=== PATIENT | female | born 1995 | race Caucasian/White ===

== ENCOUNTER 2021-10-03 09:16 | Inpatient (IN) ==
[2021-10-03] MEDS ORDERED: OXYTOCIN 30 UNITS/500 ML BAG IV PRN ×3 (10:22→20:02)
[2021-10-03 10:56] LABS: Hemoglobin 12.3 g/dL (12.0-16.0); Mean Corpuscular Hemoglobin 32.9 pg (25-34); Mean Corpuscular Hgb Conc 33.2 g/dL (32-36); Mean Corpuscular Volume 98.9 fL (80-100); Mean Platelet Volume 11.4 fL (7.4-10.4); Platelet Count 278 K/uL (130-400); RDW Coefficient of Variation 12.9 % (11.5-14.5); RDW Standard Deviation 46.7 fL (36.4-46.3); Red Blood Count 3.74 M/uL (4.2-5.4); White Blood Count 12.33 K/uL (4.8-10.8)
--- NOTE | 2021-10-03 10:56 | History & Physical Report ---
Date of Service October 03, 2021 Assessment & Plan (1) History of delivery: Plan: 6-year-old -0-2-2 at 40 weeks of gestation presenting today for induction of labor at term, history of prior , history of prior successful , already has contractions and cervix favorable with bulging bag, AROM'ed and obtain clear fluid. Vital signs stable afebrile, COVID-19 positive, with mild symptoms and excellent oxygen saturation in room air. heart rate reassuring, GBS negative, Plan to monitor continuously, low-dose Pitocin if needed She understands risks of and signed an informed consent, All questions were answered. (2) History of : (3) complicated by subutex maintenance, antepartum: Admission and Anticipated Discharge Date Admission Date: October 03, 2021 History of Present Illness Primary Care Provider: NO PCP Patient is a 26-year-old -0-2-2 at 40 weeks of gestation who was admitted for induction of labor for . She was tested positive for COVID 19 on September 26. She now has mild cough and chest discomfort. But denies fever, chills, nausea or vomiting, shortness of breath. She denies contractions, leakage of fluid, vaginal bleeding. She reports good movements. Her has been complicated by, 1. Subutex use during , history of opiate abuse, 2. Tobacco use during , smokes 1 pack cigarettes per day, 3.history of bipolar disorder and depression, not on any medications now, 4. History of prior , history of successful , Patient understands risks of including but not limited to uterine rupture, intra-abdominal bleeding, blood transfusion, hysterectomy and injury. She understands risks of repeat as well. I reviewed the risks and benefits in detail from [employer], form and she read all and sign the informed consent. Discussed limitation of induction agents with . Discussed [place] balloon mechanical dilatation, low-dose Pitocin, artificial rupture of membranes. Her cervix is dilated dilated to 3 cm with bulging bag and I offered her AROM and she accepts. Allergies Allergy/AdvReac Type Severity Reaction Status Date / Time Dust Allergy ? Uncoded 03/11/09 15:14 Home Medications Medication Instructions Recorded Confirmed Type buprenorphine HCl 8 mg sublingual 8 mg SUBLINGUAL Q8 10/03/21 10/03/21 History tablet docusate sodium 100 mg capsule 100 mg PO BID PRN 10/03/21 10/03/21 History (Colace) doxylamine succinate 25 mg tablet 25 mg PO HS PRN 10/03/21 10/03/21 History famotidine 20 mg tablet (Pepcid) 20 mg PO HS 10/03/21 10/03/21 History ferrous sulfate 325 mg (65 mg 325 mg PO DAILY 10/03/21 10/03/21 History iron) tablet (iron) [id number] 1 mg 1 tab PO DAILY 10/03/21 10/03/21 History tablet pyridoxine (vitamin B6) 25 mg 25 mg PO TID PRN 10/03/21 10/03/21 History tablet (Vitamin B-6) Patient History Medical History (Updated 10/03/21 @ 10:54 by Stanley Lopez MD) Abnormal Pap smear of vagina and vaginal HPV colposcopy- no AWE and no suspicious lesion Anemia Bipolar disease, chronic diagnosed at age 13- no current treatment Chlamydia in "teen" years COVID-19 affecting childbirth Depression affecting no current treatment History of substance abuse declines drug use since age 19. On Subutex Surgical History (Updated 10/03/21 @ 10:54 by Stanley Lopez MD) History of tonsillectomy and adenoidectomy age 6 Previous section 2009 Family History Grandmother (Maternal) Cancer Grandfather (Paternal) Stroke Social History Smoking Status: Heavy tobacco smoker Second Hand Exposure: Yes; Do You Dip or Chew Tobacco: No; Tobacco Cessation Education Requested by Patient: No Hx Alcohol Use: No Hx Substance Use: No Preferred Language: Niuean Communication Ability: Effective Cesspool Cleaner Required: No Beliefs That Will Affect Care: None marital status: Single Current Living Situation Comment: lives with son and daughter Other Information That Helps Us Care for You: No Feels Safe at Home: Yes Safety Concerns: Feels Safe At This Time Assistive Devices: None OB History Full-term breech baby in 2009 delivered via , Full-term in 2015. 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 No history of gonorrhea nor herpes. Physical Exam Constitutional: well developed and well nourished Patient is comfortable not in acute distress Skin: no rashes, warm and dry (Multiple Tatoos with pictures on them) Genitourinary: normal external appearance OB Exam Abdomen: + vertex Manual OB Exam: + cervical dilation 3 cm, + cervical effacement 50% and + station -1 OB Exam Monitor Tracing: + external uterine monitor used and + category I AROM, clear fluid Results & Data ([facility]) Vital Signs (Past 12 Hours) Vital Signs Temp Pulse Resp BP Pulse Ox 10/03/21 10:41 85 100 10/03/21 10:36 77 100 10/03/21 10:31 82 100 10/03/21 10:15 75 98 10/03/21 10:10 73 99 10/03/21 10:05 75 98 10/03/21 10:00 78 98 10/03/21 09:31 37.0 C 65 20 134/79 98
[2021-10-03 11:03] LABS: Amphetamines+Metham, Urine Neg (Neg); Barbiturates, Urine Neg (Neg); Benzodiazepine, Urine Neg (Neg); Cocaine, Urine Neg (Neg); MDMA (Ecstacy), Urine Neg (Neg); Methadone, Urine Neg (Neg); Opiate, Urine Neg (Neg); Phencyclidine, Urine Neg (Neg)
[2021-10-03 11:40] LABS: Albumin Globulin Ratio 1.1 (0.9-2); Albumin Level 3.4 gm/dl (3.4-5.0); Bilirubin,Total 0.3 mg/dl (0.2-1.0); Calcium 9.2 mg/dl (8.5-10.1); Creatinine Clr Calc Pharmacy 156.7 ml/min; Est GFR (African American) 149.3 ml/min; Est GFR (Non-African American) 128.8 ml/min; Globulin 3.2 gm/dl (2.5-4.0); Potassium 3.8 mmol/L (3.5-5.1); Total Protein 6.6 gm/dl (6.0-8.3)
[2021-10-03] MEDS: buprenorphine HCL 8 MG SUBL SL SCH ×2 (13:30→20:38)
[2021-10-03] MEDS: LACTATED RINGER'S 1,000 ML IV PRN ×2 (14:59→17:30)
[2021-10-03] MEDS ORDERED: ePHEDrine sulfate 50 MG/ML AMP ONE (16:52)
[2021-10-03] MEDS ORDERED: BUPIVACAINE 0.25% 30 ML VIAL ONE (16:52)
[2021-10-03] MEDS ORDERED: fentaNYL citrate 100 MCG/2 ML VIAL ONE (16:52)
[2021-10-03] MEDS ORDERED: SODIUM CHLORIDE 0.9% INJ 10 ML VIAL ONE (16:52)
[2021-10-03] MEDS ORDERED: fentaNYL 2MCG/ML ROPIVACAINE 1.25MG/ML 100 ML BAG EPI ONE (16:53)
[2021-10-03] MEDS ORDERED: diphenhydrAMINE 50 MG/ML VIAL IV PRN (17:01)
[2021-10-03] MEDS ORDERED: NALOXONE HCL 0.4 MG/1 ML VIAL/CARP IV PRN (17:01)
[2021-10-03] MEDS ORDERED: ONDANSETRON INJ 2 MG/ML 2 ML VIAL IV PRN (17:01)
[2021-10-03] MEDS ORDERED: ePHEDrine sulfate 50 MG/ML AMP IV PRN (17:01)
[2021-10-03] MEDS ORDERED: NALBUPHINE HCL INJ 10 MG/ML AMP IV PRN (17:01)
[2021-10-03] MEDS ORDERED: fentaNYL 2MCG/ML ROPIVACAINE 1.25MG/ML 100 ML BAG EPI PRN (17:01)
[2021-10-03] MEDS ORDERED: NALOXONE HCL 1 MG in SODIUM CHLORIDE 0.9% 1000ML 1,000 ML IV PRN (17:01)
--- NOTE | 2021-10-03 17:03 | Anesthesiology Consultation ---
Date of Service October 03, 2021 Assessment & Plan ASA ASA3 Proposed Anesthesia Anesthesia Type: Labor Epidural Risk / Benefits Reviewed With: PT / POA / Parent / Guardian, Accepts Plan and Informed Consent Obtained Additional Comments: and covid + on suboxone History Height/Weight Height: 5 ft 4.5 in Weight: 80.739 kg Allergies Allergy/AdvReac Type Severity Reaction Status Date / Time Dust Allergy ? Uncoded 03/11/09 15:14 Medications Home Medications Medication Instructions Recorded Confirmed Last Taken buprenorphine HCl 8 mg sublingual 8 mg SUBLINGUAL Q8 10/03/21 10/03/21 10/03/21 06:15 tablet docusate sodium 100 mg capsule 100 mg PO BID PRN 10/03/21 10/03/21 10/02/21 23:00 (Colace) doxylamine succinate 25 mg tablet 25 mg PO HS PRN 10/03/21 10/03/21 10/02/21 23:00 famotidine 20 mg tablet (Pepcid) 20 mg PO HS 10/03/21 10/03/21 10/02/21 23:00 ferrous sulfate 325 mg (65 mg 325 mg PO DAILY 10/03/21 10/03/21 Unknown iron) tablet (iron) [id number] 1 mg 1 tab PO DAILY 10/03/21 10/03/21 10/02/21 23:00 tablet pyridoxine (vitamin B6) 25 mg 25 mg PO TID PRN 10/03/21 10/03/21 Unknown tablet (Vitamin B-6) Active Medications Generic Name Dose Route Start Last Admin Trade Name Dale PRN Reason Stop Dose Admin Buprenorphine HCl 8 mg 10/03/21 14:00 10/03/21 13:30 Buprenorphine Hcl 8 Mg Subl SL 11/02/21 13:59 8 mg TID MAKAYLA Administration Lactated Ringer's 1,000 mls @ 150 mls/hr 10/03/21 10:22 10/03/21 17:30 Lr IV 10/05/21 10:21 999 mls/hr .[id number] PRN Administration L&D Protocol Protocol Oxytocin 30 units in 500 mls @ 6 mls/hr 10/03/21 14:35 10/03/21 16:00 Pitocin IV 10/05/21 14:34 0.36 units/hr .Q24H PRN 6 mls/hr Labor Induction/Augmentation Titration Protocol 0.36 UNITS/HR Past Medical History Medical History (Updated 10/03/21 @ 12:26 by Dylan Angela MD) Abnormal Pap smear of vagina and vaginal HPV colposcopy- no AWE and no suspicious lesion Anemia Bipolar disease, chronic diagnosed at age 13- no current treatment Chlamydia in "teen" years COVID-19 affecting childbirth Depression affecting no current treatment Heavy tobacco smoker History of substance abuse declines drug use since age 19. On Subutex Exercise / Class Metabolic Activity II 4-5 Yardwork/Stairs/Walk up hill Past Family History Family History Grandmother (Maternal) Cancer Grandfather (Paternal) Stroke Past Surgical History Surgical History (Updated 10/03/21 @ 10:54 by Stanley Lopez MD) History of tonsillectomy and adenoidectomy age 6 Previous section 2009 Past Anesthesia History No Hx of Anesthesia Complications and No Family Hx of Anesthesia Complications History of PONV No Hx of PONV and No Hx of Motion Sickness Social History Smoking Status: Heavy tobacco smoker tobacco type: cigarettes Do You Dip or Chew Tobacco: No Hx Alcohol Use: No Hx Substance Use: No Review of Systems +cough +covid denies MERLINE Physical Exam Vital Signs Last Vital Signs Temp 36.7 C 10/03/21 16:30 Pulse 66 10/03/21 17:52 Resp 20 10/03/21 16:30 BP 132/58 L 10/03/21 17:49 Pulse Ox 100 10/03/21 17:52 ENMT Mouth: no TMJ abnormality and no dentition abnormality Thyromental Distance: > or= 3.5 Finger Breadths Mallampati Class: II Neck neck extension not limited Respiratory normal respiratory effort; no respiratory distress Auscultation: lungs clear to auscultation bilaterally Cardiovascular Rate/Rhythm: regular rate and regular rhythm Neurologic moves all extremities Psychiatric Orientation: alert and oriented x 3 Testing Laboratory Results 10/03/21 10:35 10/03/21 10:35 Blood Type A Positive 10/03/21 10:35 Antibody Screen NEGATIVE 10/03/21 10:35
--- NOTE | 2021-10-03 18:50 | Obstetrical Progress Note ---
Date of Service October 03, 2021 Assessment & Plan Admission and Anticipated Discharge Date Admission Date: October 03, 2021 Subjective Late entry from 4:50 PM. Patient has not had any contractions after artificial rupture of membranes in the morning and started on Pitocin in the afternoon. heart rate had been category 1. She started to become painful soon after Pitocin was started and requested epid ural. She received epidural and was not comfortable. I checked her and she was 9 cm dilated head was a 0 to +1 station and she wanted to push. A minute after that she became 10 cm and had constant pressure and wanted to push. She pushed for about half an hour and unable to deliver. Head is at +3 station but direct occipit posterior position. Epidural start working better and she wanted to rest without pushing. We will continue to monitor closely and anticipate . Results & Data ([facility]) Vital Signs (Past 12 Hours) Vital Signs Temp Pulse Resp BP Pulse Ox 10/03/21 18:42 63 100 10/03/21 18:37 66 131/81 100 10/03/21 18:32 75 100 10/03/21 18:27 94 H 100 10/03/21 18:24 95 H 146/107 H 93 10/03/21 18:22 70 100 10/03/21 18:17 107 H 100 10/03/21 18:12 74 100 10/03/21 18:08 57 L 129/86 10/03/21 18:07 88 100 10/03/21 18:02 85 100 10/03/21 18:00 36.7 C 20 10/03/21 17:57 71 100 10/03/21 17:52 66 100 10/03/21 17:49 61 132/58 L 10/03/21 17:47 74 90 10/03/21 17:44 85 139/64 10/03/21 17:42 76 100 10/03/21 17:37 67 100 10/03/21 17:36 68 152/56 H 10/03/21 17:33 79 141/68 H 10/03/21 17:32 61 100 10/03/21 17:30 67 131/67 10/03/21 17:27 63 134/67 100 10/03/21 17:24 75 141/65 H 10/03/21 17:22 71 100 10/03/21 17:17 71 100 10/03/21 17:12 88 100 10/03/21 17:07 66 100 10/03/21 17:02 66 100 10/03/21 16:57 76 99 10/03/21 16:52 71 98 10/03/21 16:47 92 H 100 10/03/21 16:45 85 127/79 10/03/21 16:42 59 L 100 10/03/21 16:30 36.7 C 20 10/03/21 15:54 61 100 10/03/21 15:49 51 L 99 10/03/21 15:44 52 L 98 10/03/21 15:39 52 L 98 10/03/21 15:34 52 L 98 10/03/21 15:29 52 L 98 10/03/21 15:24 52 L 98 10/03/21 15:19 51 L 98 10/03/21 15:14 52 L 98 10/03/21 15:09 51 L 99 10/03/21 15:04 55 L 100 10/03/21 15:03 53 L 116/64 10/03/21 14:59 56 L 100 10/03/21 14:54 55 L 100 10/03/21 14:49 50 L 98 10/03/21 14:44 51 L 99 10/03/21 14:39 59 L 99 10/03/21 14:34 71 100 10/03/21 14:30 36.8 C 53 L 20 119/71 10/03/21 14:25 58 L 98 10/03/21 14:20 53 L 98 10/03/21 14:15 57 L 98 10/03/21 14:10 54 L 98 10/03/21 14:05 57 L 98 10/03/21 14:00 55 L 98 10/03/21 13:55 59 L 98 10/03/21 13:50 57 L 98 10/03/21 13:45 81 99 10/03/21 13:40 58 L 98 10/03/21 13:35 85 99 10/03/21 13:30 74 98 10/03/21 13:25 58 L 98 10/03/21 13:20 68 99 10/03/21 13:15 59 L 98 10/03/21 13:10 66 98 10/03/21 13:05 58 L 98 10/03/21 13:00 61 98 10/03/21 12:55 62 98 10/03/21 12:50 58 L 98 10/03/21 12:45 60 98 10/03/21 12:40 63 98 10/03/21 12:35 76 100 10/03/21 12:30 36.9 C 65 20 126/80 10/03/21 12:27 65 99 10/03/21 12:22 60 98 10/03/21 12:17 61 99 10/03/21 12:12 58 L 98 10/03/21 12:07 55 L 99 10/03/21 12:02 60 99 10/03/21 11:57 62 98 10/03/21 11:52 72 98 10/03/21 11:47 63 98 10/03/21 11:42 63 98 10/03/21 11:37 69 98 10/03/21 11:32 66 98 10/03/21 11:27 69 98 10/03/21 11:22 59 L 98 10/03/21 11:17 64 98 10/03/21 11:12 76 99 10/03/21 11:07 65 98 10/03/21 11:02 70 98 10/03/21 10:57 68 98 10/03/21 10:52 75 98 10/03/21 10:47 80 100 10/03/21 10:41 85 100 10/03/21 10:36 77 100 10/03/21 10:31 82 100 10/03/21 10:15 75 98 10/03/21 10:10 73 99 10/03/21 10:05 75 98 10/03/21 10:00 78 98 10/03/21 09:31 37.0 C 65 20 134/79 98
[2021-10-03] MEDS ORDERED: MEASLES, MUMPS & RUBELLA VIRUS VIAL SQ ONE (20:02)
[2021-10-03] MEDS ORDERED: ACETAMINOPHEN 325 MG TAB PO PRN (20:02)
[2021-10-03] MEDS ORDERED: HYDROCORTISONE ACETATE 25 MG SUPP PR PRN (20:02)
[2021-10-03] MEDS ORDERED: bisacodyL 10 MG SUPP PR PRN (20:02)
[2021-10-03] MEDS ORDERED: oxyCODONE/ACETAMINOPHEN 5mg/325mg TAB PO PRN (20:02)
[2021-10-03] MEDS ORDERED: SUPERCREAM 0.870% 15 GM JAR EXT PRN (20:02)
[2021-10-03] MEDS ORDERED: DIPHTHERIA/TETANUS/PERTUSSIS 0.5 ML SYR/VIAL IM ONE (20:02)
[2021-10-03] MEDS ORDERED: BENZOCAINE 20% AER SPR 82.5 GM CAN EXT PRN (20:02)
--- NOTE | 2021-10-03 20:12 | Anesthesia Procedure Note ---
Date of Service October 03, 2021 Anesthesia Post Epidural Note Vital Signs Vital Signs: Temp Pulse Resp BP Pulse Ox 36.7 C 65 18 136/76 100 10/03/21 19:56 10/03/21 19:57 10/03/21 19:56 10/03/21 19:56 10/03/21 19:57 Pain Intensity Bilateral Abdomen: Pain Intensity: 0 Notes Mental Status: alert / awake / arousable and participated in evaluation Patient Amnestic to Procedure: Yes Nausea / Vomiting: adequately controlled Pain: adequately controlled Airway Patency, RR, SpO2: stable & adequate BP & HR: stable & adequate Hydration State: stable & adequate Anesthetic Complications: no major complications apparent and Pt Satisfied with anesthetic care
--- NOTE | 2021-10-03 20:27 | Delivery Summary ---
Vaginal Delivery Summary Date of Service October 03, 2021 Vaginal Delivery Summary Patient was found to be fully dilated with urge and pressure and desired to push. She pushed for about 40 minutes but unable to deliver the head despite it was . She had symptomatic COVID 19 infection and was repetitively coughing and needing to clear her throat and wipe her nose from congestion. Her urge to push sensation went away and she wanted rest/ labor down for a while. heart rate was category 1. She was comfortable and labor down for about 40 minutes and then started pushing again. She pushed another 25 minutes and unable to deliver the head despite good efforts. She was constantly coughing and clearing her throat and unable to keep her breathing under control with pushing. I offered small right medial trapeziectomy and she accepted. Right after that she coughed and then vomited and then baby's head spontaneously delivered. There was a nuchal cord around neck tightly x1 and it was reduced. Shoulders were delivered with minimal traction and baby was handed off to the mother by mouth and nose were suctioned and cord was clamped times and cut at 1 minute delay. The baby was handed to the waiting pediatric team. Then the small right mediolateral episiotomy was repaired with 2-0 Vicryl in a running locked fashion and excellent hemostasis achieved. Rest of the vagina and perineum intact. Then the placenta was found to be in vagina delivered spontaneously as intact and complete. Uterus was explored and found to be empty and lower segment was cleared of all clots and debris's. EBL was 200 mL. The placenta was sent to pathology for exam. Mom and baby tolerated procedure well. Sponge needle and instrument count was correct x2. Baby was a viable male infant Apgars 8/9 and weight is pending. Noncomplicated has happened and I was present during the whole procedure.
[2021-10-03] MEDS: DOCUSATE SODIUM 100 MG CAP PO SCH (20:38)
[2021-10-03] MEDS: IBUPROFEN 600 MG TAB PO PRN (22:49)
[2021-10-04] MEDS: IBUPROFEN 600 MG TAB PO PRN ×4 (03:04→20:28)
[2021-10-04 07:11] LABS: Hematocrit (blood only) 33.3 % (37-47); Hemoglobin 11.2 g/dL (12.0-16.0); Mean Corpuscular Hemoglobin 33.2 pg (25-34); Mean Corpuscular Hgb Conc 33.6 g/dL (32-36); Mean Corpuscular Volume 98.8 fL (80-100); Mean Platelet Volume 11.6 fL (7.4-10.4); Platelet Count 269 K/uL (130-400); RDW Coefficient of Variation 12.8 % (11.5-14.5); RDW Standard Deviation 46.6 fL (36.4-46.3); Red Blood Count 3.37 M/uL (4.2-5.4); White Blood Count 18.52 K/uL (4.8-10.8)
[2021-10-04] MEDS: buprenorphine HCL 8 MG SUBL SL SCH ×3 (08:26→20:28)
[2021-10-04] MEDS: PRENATAL VITAMIN 1 TAB PO SCH (08:26)
[2021-10-04] MEDS: FERROUS SULFATE 325 MG TAB PO SCH (08:26)
[2021-10-04] MEDS: NICOTINE 7 MG/24 HR TDSY TD SCH (08:27)
[2021-10-04] MEDS: DOCUSATE SODIUM 100 MG CAP PO SCH ×2 (08:27→20:28)
--- NOTE | 2021-10-04 11:11 | Obstetrical Progress Note ---
Date of Service October 04, 2021 Subjective Ambulation: ambulating normally Voiding: no voiding problems Passing Gas:: Yes Diet Tolerance:: regular diet Lochia:: Small Feeding Type:: breast feeding Current Pain Level(1-10): 0 no SOB or difficulty breathing Physical Exam Constitutional WD/WN, vitals as above comfortable abdomen soft and non-tender fundus firm no edema neg Nathan's tent d/c in AM Results & Data ([facility]) Vital Signs (Past 12 Hours) Vital Signs Temp Pulse Resp BP Pulse Ox Pulse Ox 10/04/21 08:00 36.9 C 62 18 136/88 99 10/04/21 03:05 36.7 C 86 16 113/68 97 10/03/21 23:52 37.0 C 65 18 116/85 99 10/03/21 23:50 99 Laboratory Results 10/03/21 10/03/21 10/03/21 09:10 10:35 10:35 WBC 12.33 H RBC 3.74 L Hgb 12.3 Hct 37.0 MCV 98.9 MCH 32.9 MCHC 33.2 RDW Std Deviation 46.7 H RDW Coeff of Christopher 12.9 Plt Count 278 MPV 11.4 H Sodium Potassium Chloride Carbon Dioxide Anion Gap BUN Creatinine Est Cr Clr Drug Dosing Est GFR ( Amer) Est GFR (Non-Af Amer) BUN/Creatinine Ratio Glucose Calcium Total Bilirubin AST ALT Alkaline Phosphatase Total Protein Albumin Globulin Albumin/Globulin Ratio Urine Opiates Screen Neg Ur Methadone, Qual Neg Urine Barbiturates Neg Ur Phencyclidine (PCP) Neg U Amphetamin/Meth Scrn Neg MDMA (Ecstasy) Screen Neg U Benzodiazepines Scrn Neg Ur Cocaine Metabolite Neg U Marijuana (THC) Screen Neg Blood Type A Positive Antibody Screen NEGATIVE 10/03/21 10/04/21 10:35 06:40 WBC 18.52 H RBC 3.37 L Hgb 11.2 L Hct 33.3 L MCV 98.8 MCH 33.2 MCHC 33.6 RDW Std Deviation 46.6 H RDW Coeff of Christopher 12.8 Plt Count 269 MPV 11.6 H Sodium 139 Potassium 3.8 Chloride 108 H Carbon Dioxide 23 Anion Gap 8 BUN 4 L Creatinine 0.57 L Est Cr Clr Drug Dosing 156.7 Est GFR ( Amer) 149.3 Est GFR (Non-Af Amer) 128.8 BUN/Creatinine Ratio 7.0 L Glucose 72 Calcium 9.2 Total Bilirubin 0.3 AST 12 L ALT 6 L Alkaline Phosphatase 133 H Total Protein 6.6 Albumin 3.4 Globulin 3.2 Albumin/Globulin Ratio 1.1 Urine Opiates Screen Ur Methadone, Qual Urine Barbiturates Ur Phencyclidine (PCP) U Amphetamin/Meth Scrn MDMA (Ecstasy) Screen U Benzodiazepines Scrn Ur Cocaine Metabolite U Marijuana (THC) Screen Blood Type Antibody Screen
[2021-10-04] MEDS ORDERED: bisacodyL 5 MG TABEC PO SCH (20:00)
[2021-10-05] MEDS: IBUPROFEN 600 MG TAB PO PRN ×4 (04:47→21:13)
[2021-10-05 07:49] LABS: Hematocrit (blood only) 33.2 % (37-47); Hemoglobin 10.9 g/dL (12.0-16.0)
[2021-10-05] MEDS: FERROUS SULFATE 325 MG TAB PO SCH (08:48)
[2021-10-05] MEDS: PRENATAL VITAMIN 1 TAB PO SCH (08:48)
[2021-10-05] MEDS: buprenorphine HCL 8 MG SUBL SL SCH ×3 (08:49→21:13)
[2021-10-05] MEDS: NICOTINE 7 MG/24 HR TDSY TD SCH (08:49)
[2021-10-05] MEDS: DOCUSATE SODIUM 100 MG CAP PO SCH ×2 (08:50→21:13)
--- NOTE | 2021-10-05 09:04 | Obstetrical Progress Note ---
Date of Service October 05, 2021 Assessment & Plan Admission and Anticipated Discharge Date Admission Date: October 03, 2021 Subjective Patient is seen and examined. She feels well, no complaints. Ambulating without dizziness Voiding without difficulty Tolerating regular diet with out N&V Bleeding is minimal No fever/ chills/ CP/ SOB/ N&V/ Leg pain COVID symptoms improving Breast and bottle feeding without problems Vital Signs Temp Pulse Resp BP Pulse Ox 10/04/21 23:30 92 H 10/04/21 23:21 37.0 C 128 H 18 135/81 10/04/21 20:20 36.9 C 80 18 126/83 98 10/04/21 15:25 36.9 C 63 18 138/85 98 10/04/21 12:00 36.5 C 71 18 126/71 98 Vital Signs Temp Pulse Resp BP 10/04/21 23:30 92 H 10/04/21 23:21 37.0 C 128 H 18 135/81 Lab Results 10/03/21 10/03/21 10/03/21 Range/Units 09:10 10:35 10:35 WBC 12.33 H (4.8-10.8) K/uL RBC 3.74 L (4.2-5.4) M/uL Hgb 12.3 (12.0-16.0) g/dL Hct 37.0 (37-47) % MCV 98.9 (80-100) fL MCH 32.9 (25-34) pg MCHC 33.2 (32-36) g/dL RDW Std Deviation 46.7 H (36.4-46.3) fL RDW Coeff of Christopher 12.9 (11.5-14.5) % Plt Count 278 (130-400) K/uL MPV 11.4 H (7.4-10.4) fL Sodium (136-145) mmol/L Potassium (3.5-5.1) mmol/L Chloride (98-107) mmol/L Carbon Dioxide (21-32) mmol/L Anion Gap (3-11) BUN (6-23) mg/dl Creatinine (0.6-1.2) mg/dl Est Cr Clr Drug Dosing ml/min Est GFR ( Amer) ml/min Est GFR (Non-Af Amer) ml/min BUN/Creatinine Ratio (10-20) Glucose (70-99) mg/dl Calcium (8.5-10.1) mg/dl Total Bilirubin (0.2-1.0) mg/dl AST (13-39) U/L ALT (7-52) U/L Alkaline Phosphatase (34-104) U/L Total Protein (6.0-8.3) gm/dl Albumin (3.4-5.0) gm/dl Globulin (2.5-4.0) gm/dl Albumin/Globulin Ratio (0.9-2) Urine Opiates Screen Neg (Neg) Ur Methadone, Qual Neg (Neg) Urine Barbiturates Neg (Neg) Ur Phencyclidine (PCP) Neg (Neg) U Amphetamin/Meth Scrn Neg (Neg) MDMA (Ecstasy) Screen Neg (Neg) U Benzodiazepines Scrn Neg (Neg) Ur Cocaine Metabolite Neg (Neg) U Marijuana (THC) Screen Neg (Neg) Blood Type A Positive Antibody Screen NEGATIVE 10/03/21 10/04/21 10/05/21 Range/Units 10:35 06:40 07:34 WBC 18.52 H (4.8-10.8) K/uL RBC 3.37 L (4.2-5.4) M/uL Hgb 11.2 L 10.9 L (12.0-16.0) g/dL Hct 33.3 L 33.2 L (37-47) % MCV 98.8 (80-100) fL MCH 33.2 (25-34) pg MCHC 33.6 (32-36) g/dL RDW Std Deviation 46.6 H (36.4-46.3) fL RDW Coeff of Christopher 12.8 (11.5-14.5) % Plt Count 269 (130-400) K/uL MPV 11.6 H (7.4-10.4) fL Sodium 139 (136-145) mmol/L Potassium 3.8 (3.5-5.1) mmol/L Chloride 108 H (98-107) mmol/L Carbon Dioxide 23 (21-32) mmol/L Anion Gap 8 (3-11) BUN 4 L (6-23) mg/dl Creatinine 0.57 L (0.6-1.2) mg/dl Est Cr Clr Drug Dosing 156.7 ml/min Est GFR ( Amer) 149.3 ml/min Est GFR (Non-Af Amer) 128.8 ml/min BUN/Creatinine Ratio 7.0 L (10-20) Glucose 72 (70-99) mg/dl Calcium 9.2 (8.5-10.1) mg/dl Total Bilirubin 0.3 (0.2-1.0) mg/dl AST 12 L (13-39) U/L ALT 6 L (7-52) U/L Alkaline Phosphatase 133 H (34-104) U/L Total Protein 6.6 (6.0-8.3) gm/dl Albumin 3.4 (3.4-5.0) gm/dl Globulin 3.2 (2.5-4.0) gm/dl Albumin/Globulin Ratio 1.1 (0.9-2) Urine Opiates Screen (Neg) Ur Methadone, Qual (Neg) Urine Barbiturates (Neg) Ur Phencyclidine (PCP) (Neg) U Amphetamin/Meth Scrn (Neg) MDMA (Ecstasy) Screen (Neg) U Benzodiazepines Scrn (Neg) Ur Cocaine Metabolite (Neg) U Marijuana (THC) Screen (Neg) Blood Type Antibody Screen PE: General: Alert, orientedx3, NAD Abd: soft, NT, fundus firm, below Umbilicus Perineum intact, Lochia rubra minimal Ext; NT, no edema AP: 26 yo s/p , ppd# 2 VSS Afebrile doing well Continue routine care All questions were answered CBC to check for WBCC Discussed when to call D/C home / nesting after dinner Results & Data ([facility]) Vital Signs (Past 12 Hours) Vital Signs Temp Pulse Resp BP 10/04/21 23:30 92 H 10/04/21 23:21 37.0 C 128 H 18 135/81
[2021-10-05 09:44] LABS: Mean Corpuscular Hemoglobin 33.2 pg (25-34); Mean Platelet Volume 11.8 fL (7.4-10.4); Platelet Count 290 K/uL (130-400); RDW Standard Deviation 47.8 fL (36.4-46.3); Red Blood Count 3.31 M/uL (4.2-5.4); White Blood Count 14.15 K/uL (4.8-10.8)
[2021-10-05 09:55] LABS: Basophils # (auto) 0.03 K/uL (0-0.2); Basophils % (auto) 0.2 %; Eosinophils # (auto) 0.32 K/uL (0-0.5); Eosinophils % (auto) 2.3 %; Immature Granulocytes # (auto) 0.06 K/uL (0.00-0.02); Immature Granulocytes % (auto) 0.4 %; Lymphocytes # (auto) 7.05 K/uL (1.2-3.4); Lymphocytes % (auto) 49.8 %; Mean Corpuscular Hgb Conc 32.8 g/dL (32-36); Mean Corpuscular Volume 100.9 fL (80-100); Monocytes % (auto) 6.4 %; Neutrophils # (auto) 5.79 K/uL (1.4-6.5); Neutrophils % (auto) 40.9 %
== END 2021-10-05 22:25 | disposition home or self-care (01) | DRG 805 ==
LOC: 4W 09:16 → 3N 23:11

== ENCOUNTER 2023-09-24 05:14 | Inpatient (IN) ==
[2023-09-24] MEDS ORDERED: LACTATED RINGER'S 1,000 ML IV PRN (05:50)
[2023-09-24] MEDS ORDERED: LIDOCAINE 1% LOCAL 20 ML VIAL INFIL PRN (05:50)
[2023-09-24] MEDS ORDERED: OXYTOCIN 30 UNITS/NSS 30 UNITS/500 ML BAG IV PRN ×2 (05:50→07:22)
[2023-09-24] MEDS ORDERED: LIDOCAINE 1%/EPINEPHRINE 1:100,000 20 ML VIAL ONE (05:53)
[2023-09-24] MEDS ORDERED: LIDOCAINE 1% LOCAL 20 ML VIAL ONE (05:54)
--- NOTE | 2023-09-24 06:11 | Delivery Summary ---
Vaginal Delivery Summary Date of Service September 24, 2023 Vaginal Delivery Summary Patient delivered a live in transit. On arrival to labor and delivery the placenta was not delivered. I proceeded to deliver the placenta without difficulty. Estimated blood loss after placental delivery was 3 to 200 cc. Inspection of the perineum showed right labia laceration which was repaired with 2-0 Vicryl good hemostasis postrepair.
[2023-09-24 06:25] LABS: Hematocrit (blood only) 32.9 % (37.0-47.0); Hemoglobin 11.1 g/dl (12.0-16.0); Mean Corpuscular Hgb Conc 33.7 g/dL (32.0-36.0); Mean Corpuscular Volume 97.9 fL (80.0-100.0); Mean Platelet Volume 11.9 fL (9.4-12.4); Platelet Count 236 K/uL (130-400); RDW Standard Deviation 46.3 fL (36.4-46.3); Red Blood Count 3.36 M/uL (4.20-5.40)
[2023-09-24] MEDS ORDERED: METHYLERGONOVINE MALEATE 0.2 MG/ML AMP IM STA (06:55)
[2023-09-24] MEDS ORDERED: IBUPROFEN 600 MG TAB PO ONE (07:04)
[2023-09-24] MEDS ORDERED: bisacodyL 10 MG SUPP PR PRN (07:22)
[2023-09-24] MEDS ORDERED: ACETAMINOPHEN 325 MG TAB PO PRN (07:22)
[2023-09-24] MEDS ORDERED: BENZOCAINE 20% SPRY 85 APPLN/85 GM CAN EXT PRN (07:22)
[2023-09-24] MEDS ORDERED: HYDROCORTISONE ACETATE 25 MG SUPP PR PRN (07:22)
[2023-09-24] MEDS ORDERED: DIPHTHERIA/TETANUS/PERTUSSIS Vaccine (Tdap, Age 7+yrs) 0.5mL SYR/VL IM ONE (07:22)
[2023-09-24 07:48] LABS: Amphetamines+Metham, Urine Neg (Neg); Barbiturates, Urine Neg (Neg); Benzodiazepine, Urine Neg (Neg); Cocaine, Urine Neg (Neg); MDMA (Ecstacy), Urine Neg (Neg); Marijuana, Urine Neg (Neg); Methadone, Urine Neg (Neg); Opiate, Urine Neg (Neg); Phencyclidine, Urine Neg (Neg)
[2023-09-24] MEDS: DOCUSATE SODIUM 100 MG CAP PO SCH ×2 (10:07→21:56)
[2023-09-24] MEDS: PRENATAL VITAMIN 1 TAB PO SCH (10:07)
[2023-09-24] MEDS ORDERED: Nursing to Pharmacy Communication SCH (10:15)
[2023-09-24] MEDS: buprenorphine HCL 8 MG SUBL SL SCH ×3 (11:30→21:56)
[2023-09-24] MEDS ORDERED: buprenorphine HCL 8 MG SUBL SL SCH (14:00)
[2023-09-24] MEDS: IBUPROFEN 600 MG TAB PO PRN (16:56)
[2023-09-24] MEDS: NICOTINE 14 MG/24 HR PATCH TD SCH (23:30)
[2023-09-25] MEDS: buprenorphine HCL 8 MG SUBL SL SCH ×2 (06:02→14:03)
[2023-09-25 06:33] LABS: Hemoglobin 10.5 g/dl (12.0-16.0); Mean Corpuscular Hgb Conc 32.8 g/dL (32.0-36.0); Mean Corpuscular Volume 100.6 fL (80.0-100.0); Mean Platelet Volume 11.9 fL (9.4-12.4); Platelet Count 237 K/uL (130-400); RDW Coefficient of Variation 13.2 % (11.5-14.5); RDW Standard Deviation 49.1 fL (36.4-46.3); Red Blood Count 3.18 M/uL (4.20-5.40)
[2023-09-25] MEDS: IBUPROFEN 600 MG TAB PO PRN ×2 (08:14→14:03)
[2023-09-25] MEDS: PRENATAL VITAMIN 1 TAB PO SCH (08:15)
[2023-09-25] MEDS: NICOTINE 14 MG/24 HR PATCH TD SCH (08:15)
[2023-09-25] MEDS: DOCUSATE SODIUM 100 MG CAP PO SCH (08:15)
[2023-09-25] MEDS ORDERED: NICOTINE 14 MG/24 HR PATCH TD SCH (09:00)
--- NOTE | 2023-09-25 13:02 | Obstetrical Progress Note ---
Date of Service September 25, 2023 Assessment & Plan (1) History of delivery: PPD #1 pt doing well d/c home with instructions Subjective Ambulation: ambulating normally Voiding: no voiding problems Passing Gas:: Yes Diet Tolerance:: regular diet Lochia:: Small Feeding Type:: breast feeding Review of Systems All systems reviewed & are unremarkable except as noted in HPI & below Physical Exam Constitutional WD/WN, vitals as above well developed and well nourished Eyes PERRL, conjunctivae normal, anicteric sclerae Neck trachea midline, no thyromegaly Respiratory normal respiratory effort, lungs clear to auscultation Auscultation: no crackles, no rales and no wheezes Cardiovascular RRR, no murmur, no edema Gastrointestinal (Abdomen) normal bowel sounds, soft, nontender, no hepatosplenomegaly Uterus is below umbilicus Musculoskeletal no cyanosis or clubbing, extremities motor strength 5/5 Skin no rashes, warm and dry Neurologic patellar DTR's 2+ bilat, sensation intact Psychiatric A+Ox3, euthymic affect Genitourinary normal external appearance Results & Data Vital Signs (Past 12 Hours) Vital Signs Temp Pulse Resp BP Pulse Ox O2 Del Method 09/25/23 08:15 36.6 C 84 16 132/81 99 Room Air 09/25/23 03:06 36.6 C 74 16 113/74 99 Room Air
[2023-09-25] MEDS ORDERED: bisacodyL 5 MG TABEC PO SCH (20:00)
--- NOTE | 2023-09-26 06:13 | Coding Query ---
CODING QUERY To promote full compliance with coding requirements relating to patient care, provider participation is requested in all cases of shearing supervisor uncertainty. Please assist us with the question(s) below: Coding Question(s): Please specify weeks of gestation, if known. Physician's Response(s): 39.4 weeks Thank you Florencia Grigsby Principal Diagnosis: "that condition established after study, to be chiefly responsible for occasioning the admission of the patient to the hospital for care." Co-Existing Principal Diagnosis: "when two or more diagnoses equally meet the criteria for principal diagnosis as determined by the circumstances of admission, diagnostic work up, and/or therapy provided, and the Alphabetic Index, Tabular List, or another coding guideline does not provide sequencing direction, any one of the diagnoses may be sequenced first." "When the physician has documented what appears to be a current diagnosis in the body of the record, but has not included the diagnosis in the final diagnostic statement, the physician should be asked whether the diagnosis should be added." ([facility] 2 QTR90. p3-4) LUIS
== END 2023-09-25 14:30 | disposition home or self-care (01) | DRG 807 ==
LOC: 4S1 05:14 → 4E2 09:45